=== PATIENT | male | born 1945 | race African-American/Black ===

== ENCOUNTER 2019-02-11 23:41 | Emergency (ER) | payer MEDICARE ==
[~2019-02-11] VITALS: Ht 182.9 cm; Wt 79.0 kg
[~2019-02-11 23:41] MED LIST: ALLO100T PO; AMLO10TA4 PO; ASPI-1393 PO; ASPI-864 PO; CEFT400V IV; HYDR-3927 PO; HYDR-4134 PO; HYDR500C18 PO; LISI10TA5 PO; METO25TA6 PO; OMEP20CA5 PO; PANTOPRAZOLE PO; TERA5CAP PO
[2019-02-12 03:56] LABS: BASOPHILS % 0.6 % (0.0-2.0); EOSINOPHILS % 2.7 % (0.0-5.0); HEMATOCRIT. 35.8 % (42.0-52.0); HEMOGLOBIN. 11.4 g/dL (14.0-18.0); MEAN CORPUSCULAR HEMOGLOBIN 31.3 pg (28.0-32.0); MEAN CORPUSCULAR VOLUME 97.9 fL (80.0-94.0); MEAN PLATELET VOLUME 7.3 fl (7.4-10.4); MONOCYTES % 2.4 % (2.0-8.0); NEUTROPHILS % 86.3 % (40.0-76.0); PLATELET 235 x1000/uL (130-400); RED BLOOD CELL COUNT 3.66 mill/uL (4.7-6.1); RED CELL DISTRIBUTION WIDTH 16.7 % (11.6-14.6)
[2019-02-12 04:02] LABS: CHLORIDE 116 mEq/L (98-107)
[2019-02-12 05:45] VITALS: BP 126/88
== END 2019-02-12 05:48 | disposition home or self-care (01) ==
LOC: ER 23:41 → CANBEDREQ 02-12 07:40
DX: N28.9 Disorder of kidney and ureter, unspecified (principal); I10 Essential (primary) hypertension; N40.0 Benign prostatic hyperplasia without lower urinary tract symptoms; R78.89 Finding of other specified substances, not normally found in blood; Z98.890 Other specified postprocedural states; Z88.1 Allergy status to other antibiotic agents; Z79.899 Other long term (current) drug therapy
CPT/HCPCS: 36415; 99283

== ENCOUNTER 2022-03-14 18:18 | Inpatient (IN) | payer MEDICARE ==
[~2022-03-14] VITALS: Ht 172.7 cm; Wt 58.5 kg
[~2022-03-14 18:18] MED LIST changes: -AMLO10TA4 PO; -ASPI-1393 PO; -ASPI-864 PO; -HYDR-4134 PO; -LISI10TA5 PO; -METO25TA6 PO; +OMEP20CA14 PO; -OMEP20CA5 PO
[2022-03-14] MEDS ORDERED: VANCOMYCIN 1G PREMIX 200 ML IV ONE (18:45)
[2022-03-14] MEDS ORDERED: PIPERACILLIN/TAZ 3.375G PREMIX 50 ML IV ONE (18:45)
[2022-03-14] MEDS ORDERED: VANCOMYCIN 1G PREMIX 200 ML IV NR (18:45)
[2022-03-14] MEDS ORDERED: SODIUM CHLORIDE 0.9% 500 ML IV ONE (18:45)
[2022-03-14 19:02] LABS: BG BASE EXCESS -22.2 mmol/L (-2.0-2.0); BG CARBOXYHEMOGLOBIN 2.2 % (0.5-1.5); BG DEOXYHEMOGLOBIN 1.4 % (0.0-5.0); BG FRACTION INSPIRED OXYGEN 21; BG HCO3 ACT 5.8 mmol/L (22.0-26.0); BG METHEMOGLOBIN 0.3 % (0.0-1.5); BG OXYGEN SATURATION 98.6 % (92.0-98.5); BG OXYHEMOGLOBIN 96.1 % (94.0-97.0); BG PCO2 19.6 mmHg (35.0-45.0); BG PH 7.089 (7.350-7.450); BG PO2 130.8 mmHg (75.0-100.0); BG SAMPLE SITE RIGHT BRACHIAL; BG TOTAL HEMOGLOBIN 8.5 g/dL (12.0-18.0); BG VENT MODE ROOM AIR
[2022-03-14] MEDS ORDERED: SODIUM BICARBONATE 150 MEQ in DEXTROSE 5% WATER 1,000 ML IV STA (19:13)
[2022-03-14] MEDS ORDERED: SODIUM BICARBONATE 8.4% 1 MEQ/ML 50ML SYR IV NR (19:15)
[2022-03-14] MEDS ORDERED: SODIUM BICARBONATE 8.4% 1 MEQ/ML 50ML SYR IV ONE (19:15)
[2022-03-14 19:57] LABS: HEMATOCRIT. 31.5 % (42.0-52.0); MEAN CORPUSCULAR HEMOGLOBIN 25.6 pg (28.0-32.0); MEAN PLATELET VOLUME 8.5 fl (7.4-10.4); PLATELET 233 x1000/uL (130-400); RED BLOOD CELL COUNT 3.49 mill/uL (4.7-6.1); RED CELL DISTRIBUTION WIDTH 20.4 % (11.6-14.6)
[2022-03-14 20:10] LABS: CHLORIDE 119 mEq/L (98-107)
[2022-03-14] MEDS ORDERED: DEXTROSE 50% WATER 50ML SYRINGE IV NR (20:15)
[2022-03-14 21:25] LABS: CLARITY URINE CLEAR (CLEAR); COLOR URINE YELLOW (YELLOW); KETONES URINE TRACE (NEGATIVE); LEUKOCYTE ESTERASE URINE NEGATIVE (NEGATIVE); NITRITE URINE NEGATIVE (NEGATIVE); OCCULT BLOOD URINE NEGATIVE (NEGATIVE); PH URINE 5.5 (4.5-8.0); PROTEIN URINE 2+ (NEGATIVE); SPECIFIC GRAVITY URINE 1.013 (1.005-1.030); UROBILINOGEN URINE 0.2 E.U./dL (0.2-1.0)
[2022-03-14] MEDS ORDERED: ALBUTEROL (0.083%) 2.5MG/3ML NEB HHN ONE (22:00)
[2022-03-14] MEDS ORDERED: CALCIUM CHLORIDE 1GM/10ML SYR IV ONE (22:00)
[2022-03-14 22:32] LABS: PLATELET ESTIMATE NORMAL
[2022-03-14] MEDS ORDERED: VANCOMYCIN 1G PREMIX 200 ML IV SCH (22:45)
[2022-03-14] MEDS ORDERED: DIPHENHYDRAMINE 50MG/ML VIAL IV PRN (22:45)
[2022-03-14] MEDS ORDERED: ACETAMINOPHEN 325MG TABLET PO PRN (22:45)
[2022-03-14] MEDS ORDERED: DEXT 5%/0.45% NACL 1000ML 1,000 ML IV SCH (23:00)
[2022-03-15] VITALS (46 sets, daily range): BP systolic 67–142; BP diastolic 28–76
[2022-03-15 01:59] LABS: HEPATITIS B SURFACE ANTIGEN NEGATIVE
[2022-03-15 04:50] LABS: HEMATOCRIT. 27.7 % (42.0-52.0); HEMOGLOBIN. 8.1 g/dL (14.0-18.0); MEAN CORPUSCULAR HEMOGLOBIN 25.8 pg (28.0-32.0); MEAN CORPUSCULAR VOLUME 88.5 fL (80.0-94.0); MEAN PLATELET VOLUME 7.9 fl (7.4-10.4); PLATELET 154 x1000/uL (130-400); RED BLOOD CELL COUNT 3.13 mill/uL (4.7-6.1); RED CELL DISTRIBUTION WIDTH 19.6 % (11.6-14.6)
[2022-03-15] MEDS ORDERED: SODIUM BICARBONATE 8.4% 1 MEQ/ML 50ML SYR IV SCH (07:24)
[2022-03-15 07:33] LABS: PLATELET ESTIMATE NORMAL
[2022-03-15] MEDS ORDERED: PIPERACILLIN/TAZOBACTAM 3.375 G in DEXTROSE 5% WATER 50 ML IV SCH (09:00)
[2022-03-15 09:23] LABS: BG BASE EXCESS -9.8 mmol/L (-2.0-2.0); BG CARBOXYHEMOGLOBIN 1.8 % (0.5-1.5); BG DEOXYHEMOGLOBIN 3.7 % (0.0-5.0); BG FRACTION INSPIRED OXYGEN 21; BG HCO3 ACT 14.7 mmol/L (22.0-26.0); BG METHEMOGLOBIN 0.9 % (0.0-1.5); BG OXYGEN SATURATION 96.2 % (92.0-98.5); BG OXYHEMOGLOBIN 93.6 % (94.0-97.0); BG PCO2 27.3 mmHg (35.0-45.0); BG PO2 88.9 mmHg (75.0-100.0); BG SAMPLE SITE RIGHT RADIAL; BG TOTAL HEMOGLOBIN 7.4 g/dL (12.0-18.0); BG VENT MODE ROOM AIR
[2022-03-15] MEDS: MORPHINE SULFATE 2 MG/ML CPJ (NOT FOR IM USE) IV PRN (10:55)
[2022-03-15] MEDS ORDERED: NALOXONE HCL 0.4MG/ML VIAL IV PRN (11:00)
[2022-03-15] MEDS ORDERED: IPRATROPIUM/ALBUTEROL 0.5-3(2.5)MG/3ML NEB HHN PRN (11:45)
[2022-03-15 13:10] LABS: TOTAL IRON BINDING CAPACITY 189 ug/dL (250-450)
[2022-03-15] MEDS: SODIUM BICARBONATE 150 MEQ in DEXTROSE 5% WATER 1,000 ML IV SCH (14:44)
[2022-03-15] MEDS: PIPERACILLIN/TAZOBACTAM 3.375 G in DEXTROSE 5% WATER 50 ML IV SCH (20:17)
[2022-03-16] VITALS (90 sets, daily range): BP systolic 79–156; BP diastolic 23–93
[2022-03-16] MEDS: PHENYLEPHRINE 100 MG in DEXT 5% WATER 240 ML IV PRN ×2 (00:32→23:48)
[2022-03-16 04:28] LABS: HEMATOCRIT. 22.7 % (42.0-52.0); HEMOGLOBIN. 7.2 g/dL (14.0-18.0); MEAN CORPUSCULAR HEMOGLOBIN 25.6 pg (28.0-32.0); MEAN CORPUSCULAR VOLUME 81.3 fL (80.0-94.0); PLATELET 137 x1000/uL (130-400); RED BLOOD CELL COUNT 2.79 mill/uL (4.7-6.1); RED CELL DISTRIBUTION WIDTH 19.3 % (11.6-14.6)
[2022-03-16 05:38] LABS: PLATELET ESTIMATE NORMAL
[2022-03-16] MEDS: SODIUM BICARBONATE 150 MEQ in DEXTROSE 5% WATER 1,000 ML IV SCH ×2 (07:49→23:47)
[2022-03-16] MEDS: PIPERACILLIN/TAZOBACTAM 3.375 G in DEXTROSE 5% WATER 50 ML IV SCH (08:54)
[2022-03-16] MEDS: METRONIDAZOLE 500MG TABLET PO SCH ×2 (13:55→21:42)
[2022-03-16] MEDS ORDERED: VANCOMYCIN 1G PREMIX 200 ML IV SCH (14:00)
[2022-03-16] MEDS: CEFEPIME 1,000 MG in DEXTROSE 5% WATER 50 ML IV SCH (15:36)
[2022-03-17] VITALS (99 sets, daily range): BP systolic 98–159; BP diastolic 40–104
[2022-03-17 05:07] LABS: HEMATOCRIT. 22.5 % (42.0-52.0); HEMOGLOBIN. 7.1 g/dL (14.0-18.0); MEAN CORPUSCULAR HEMOGLOBIN 25.4 pg (28.0-32.0); MEAN CORPUSCULAR VOLUME 80.4 fL (80.0-94.0); MEAN PLATELET VOLUME 9.1 fl (7.4-10.4); PLATELET 119 x1000/uL (130-400); RED CELL DISTRIBUTION WIDTH 19.4 % (11.6-14.6)
[2022-03-17] MEDS: METRONIDAZOLE 500MG TABLET PO SCH (06:07)
[2022-03-17 12:22] LABS: PLATELET ESTIMATE DECREASED
[2022-03-17] MEDS: CEFEPIME 1,000 MG in DEXTROSE 5% WATER 50 ML IV SCH (14:19)
[2022-03-17] MEDS: METRONIDAZOLE 250MG TABLET PO SCH ×2 (14:19→21:04)
[2022-03-17] MEDS: METOPROLOL TARTRATE 25MG TABLET NG SCH (21:03)
[2022-03-18] VITALS (100 sets, daily range): BP systolic 106–177; BP diastolic 40–118
[2022-03-18] MEDS: MORPHINE SULFATE 2 MG/ML CPJ (NOT FOR IM USE) IV PRN ×2 (04:52→17:59)
[2022-03-18 05:52] LABS: HEMATOCRIT. 21.9 % (42.0-52.0); MEAN CORPUSCULAR HEMOGLOBIN 25.2 pg (28.0-32.0); MEAN CORPUSCULAR VOLUME 81.7 fL (80.0-94.0); RED BLOOD CELL COUNT 2.68 mill/uL (4.7-6.1); RED CELL DISTRIBUTION WIDTH 18.2 % (11.6-14.6)
[2022-03-18] MEDS: METRONIDAZOLE 250MG TABLET PO SCH ×3 (06:20→21:07)
[2022-03-18 06:47] LABS: HEMOGLOBIN. 6.8 g/dL (14.0-18.0)
[2022-03-18] MEDS: ACETAMINOPHEN 325MG TABLET PO PRN (08:10)
[2022-03-18] MEDS: METOPROLOL TARTRATE 25MG TABLET NG SCH ×2 (08:10→21:07)
[2022-03-18 09:28] LABS: PLATELET ESTIMATE DECREASED
[2022-03-18 09:30] LABS: MEAN PLATELET VOLUME 10.2 fl (7.4-10.4)
[2022-03-18 09:31] LABS: PLATELET 78 x1000/uL (130-400)
[2022-03-18] MEDS: CEFEPIME 1,000 MG in DEXTROSE 5% WATER 50 ML IV SCH (14:19)
[2022-03-19] VITALS (42 sets, daily range): BP systolic 89–149; BP diastolic 53–79
[2022-03-19] MEDS: METRONIDAZOLE 250MG TABLET PO SCH ×3 (05:46→21:38)
[2022-03-19] MEDS: MORPHINE SULFATE 2 MG/ML CPJ (NOT FOR IM USE) IV PRN (05:46)
[2022-03-19 05:47] LABS: HEMATOCRIT. 25.8 % (42.0-52.0); HEMOGLOBIN. 8.1 g/dL (14.0-18.0); MEAN CORPUSCULAR HEMOGLOBIN 25.9 pg (28.0-32.0); RED BLOOD CELL COUNT 3.15 mill/uL (4.7-6.1); RED CELL DISTRIBUTION WIDTH 17.5 % (11.6-14.6)
[2022-03-19] MEDS ORDERED: ALTEPLASE 2MG/VIAL ITC NR (08:00)
[2022-03-19 08:16] LABS: PLATELET ESTIMATE DECREASED
[2022-03-19 08:17] LABS: PLATELET 67 x1000/uL (130-400)
[2022-03-19] MEDS: METOPROLOL TARTRATE 25MG TABLET NG SCH ×2 (09:32→21:00)
[2022-03-19] MEDS: ACETAMINOPHEN 325MG TABLET PO PRN (09:33)
[2022-03-19] MEDS: CEFEPIME 1,000 MG in DEXTROSE 5% WATER 50 ML IV SCH (14:36)
[2022-03-19] MEDS ORDERED: VANCOMYCIN 750 MG in DEXT 5% WATER 250 ML IV NR (18:00)
[2022-03-20] VITALS: BP 119/59
[2022-03-20 04:00] VITALS: BP 114/57
[2022-03-20] MEDS: ONDANSETRON HCL 4MG/2ML INJ IV PRN ×2 (06:23→21:54)
[2022-03-20] MEDS: METRONIDAZOLE 250MG TABLET PO SCH ×3 (06:23→21:54)
[2022-03-20 07:35] LABS: HEMATOCRIT. 25.5 % (42.0-52.0); HEMOGLOBIN. 7.9 g/dL (14.0-18.0); MEAN CORPUSCULAR HEMOGLOBIN 25.9 pg (28.0-32.0); MEAN CORPUSCULAR VOLUME 83.2 fL (80.0-94.0); RED BLOOD CELL COUNT 3.06 mill/uL (4.7-6.1); RED CELL DISTRIBUTION WIDTH 17.5 % (11.6-14.6)
[2022-03-20 08:00] VITALS: BP 141/65
[2022-03-20] MEDS ORDERED: ALTEPLASE 2MG/VIAL ITC NR (08:00)
[2022-03-20] MEDS: ASCORBIC ACID 500 MG TABLET PO SCH (09:55)
[2022-03-20] MEDS: ZINC SULFATE 220 MG ( 50 ) CAPSULE PO SCH (09:55)
[2022-03-20] MEDS: METOPROLOL TARTRATE 25MG TABLET NG SCH ×2 (09:55→21:00)
[2022-03-20 12:00] VITALS: BP 89/45
[2022-03-20 13:34] LABS: NUCLEATED RED BLOOD CELLS 1 /100 WBC
[2022-03-20 13:35] LABS: PLATELET ESTIMATE DECREASED
[2022-03-20 13:37] LABS: MEAN PLATELET VOLUME 9.3 fl (7.4-10.4); PLATELET 59 x1000/uL (130-400)
[2022-03-20] MEDS ORDERED: [UNRECOGNIZED DRUG - REMARK] XX SCH (14:30)
[2022-03-20] MEDS: CEFEPIME 1,000 MG in DEXTROSE 5% WATER 50 ML IV SCH (15:31)
[2022-03-20 16:00] VITALS: BP 100/50
[2022-03-20 20:00] VITALS: BP 95/51
[2022-03-21] VITALS (8 sets, daily range): BP systolic 90–128; BP diastolic 43–68
[2022-03-21] MEDS: ACETAMINOPHEN 325MG TABLET PO PRN (01:06)
[2022-03-21] MEDS: METRONIDAZOLE 250MG TABLET PO SCH ×3 (07:06→21:32)
[2022-03-21 07:08] LABS: HEMATOCRIT. 21.6 % (42.0-52.0); MEAN CORPUSCULAR HEMOGLOBIN 26.3 pg (28.0-32.0); MEAN CORPUSCULAR VOLUME 82.8 fL (80.0-94.0); RED BLOOD CELL COUNT 2.61 mill/uL (4.7-6.1); RED CELL DISTRIBUTION WIDTH 17.2 % (11.6-14.6)
[2022-03-21 08:55] LABS: HEMOGLOBIN. 6.9 g/dL (14.0-18.0)
[2022-03-21 08:56] LABS: PLATELET 65 x1000/uL (130-400)
[2022-03-21] MEDS: ASCORBIC ACID 500 MG TABLET PO SCH (09:37)
[2022-03-21] MEDS: ZINC SULFATE 220 MG ( 50 ) CAPSULE PO SCH (09:37)
[2022-03-21] MEDS: METOPROLOL TARTRATE 25MG TABLET NG SCH ×2 (09:38→21:32)
[2022-03-21 13:06] LABS: PLATELET ESTIMATE DECREASED
[2022-03-21] MEDS: CEFEPIME 1,000 MG in DEXTROSE 5% WATER 50 ML IV SCH (15:32)
[2022-03-22] VITALS (8 sets, daily range): BP systolic 101–115; BP diastolic 45–66
[2022-03-22] MEDS: METRONIDAZOLE 250MG TABLET PO SCH ×3 (05:53→21:42)
[2022-03-22 08:04] LABS: HEMATOCRIT. 28.2 % (42.0-52.0); HEMOGLOBIN. 8.6 g/dL (14.0-18.0); MEAN CORPUSCULAR HEMOGLOBIN 26.5 pg (28.0-32.0); MEAN CORPUSCULAR VOLUME 86.6 fL (80.0-94.0); MEAN PLATELET VOLUME 11.5 fl (7.4-10.4); PLATELET 91 x1000/uL (130-400); RED BLOOD CELL COUNT 3.26 mill/uL (4.7-6.1); RED CELL DISTRIBUTION WIDTH 17.4 % (11.6-14.6)
[2022-03-22] MEDS: ZINC SULFATE 220 MG ( 50 ) CAPSULE PO SCH (09:19)
[2022-03-22] MEDS: ASCORBIC ACID 500 MG TABLET PO SCH (09:20)
[2022-03-22] MEDS: METOPROLOL TARTRATE 25MG TABLET NG SCH ×2 (09:20→21:00)
[2022-03-22 10:02] LABS: PLATELET ESTIMATE DECREASED
[2022-03-22] MEDS: ACETAMINOPHEN 325MG TABLET PO PRN ×2 (10:29→22:30)
[2022-03-22] MEDS: CEFEPIME 1,000 MG in DEXTROSE 5% WATER 50 ML IV SCH (15:00)
[2022-03-23] VITALS (7 sets, daily range): BP systolic 100–131; BP diastolic 30–61
[2022-03-23] MEDS: METRONIDAZOLE 250MG TABLET PO SCH ×3 (06:56→22:14)
[2022-03-23 08:25] LABS: HEMATOCRIT. 25.6 % (42.0-52.0); HEMOGLOBIN. 7.8 g/dL (14.0-18.0); MEAN CORPUSCULAR HEMOGLOBIN 26.5 pg (28.0-32.0); MEAN CORPUSCULAR VOLUME 86.5 fL (80.0-94.0); MEAN PLATELET VOLUME 9.7 fl (7.4-10.4); PLATELET 71 x1000/uL (130-400); RED BLOOD CELL COUNT 2.96 mill/uL (4.7-6.1)
[2022-03-23] MEDS: METOPROLOL TARTRATE 25MG TABLET NG SCH ×2 (10:21→20:31)
[2022-03-23] MEDS: ASCORBIC ACID 500 MG TABLET PO SCH (10:21)
[2022-03-23] MEDS: ZINC SULFATE 220 MG ( 50 ) CAPSULE PO SCH (10:21)
[2022-03-23] MEDS: CEFEPIME 1,000 MG in DEXTROSE 5% WATER 50 ML IV SCH (15:32)
[2022-03-23] MEDS: ACETAMINOPHEN 325MG TABLET PO PRN (18:19)
[2022-03-23 22:50] LABS: PLATELET ESTIMATE DECREASED
== END 2022-03-23 23:00 | disposition short-term general hospital (02) | DRG 871 ==
LOC: ER 18:18 → MICUSO 21:59 → EDBEDREQ 22:28 → EDBEDREQSVC 22:29 → EDBEDREQTM 22:29 → ENRESERV 22:39 → CANRESERV 22:39 → EDBEDREQSVC 23:09 → CANRESERV 23:20 → ENRESERV 23:20 → EDBEDREQSVC 03-15 00:51 → ENRESERV 03-15 01:09 → MICUSO 03-15 06:18 → 7WST 03-15 07:20 → MICUSO 03-15 08:10 → 6WST 03-19 17:09
PROVIDERS: ADMIT Internal Medicine; ATTEND Internal Medicine
PROC: 5A1D70Z Performance of Urinary Filtration, Intermittent, Less than 6 Hours Per Day (ICD-10-PCS; 2022-03-15)
PROC: 5A1D70Z Performance of Urinary Filtration, Intermittent, Less than 6 Hours Per Day (ICD-10-PCS; 2022-03-16)
PROC: 30233N1 Transfusion of Nonautologous Red Blood Cells into Peripheral Vein, Percutaneous Approach (ICD-10-PCS; principal; 2022-03-18)
PROC: 5A1D70Z Performance of Urinary Filtration, Intermittent, Less than 6 Hours Per Day (ICD-10-PCS; 2022-03-18)
DX: A41.50 Gram-negative sepsis, unspecified (principal); E43 Unspecified severe protein-calorie malnutrition; N18.6 End stage renal disease; G93.41 Metabolic encephalopathy; R65.21 Severe sepsis with septic shock; E87.2 Acidosis; I12.0 Hypertensive chronic kidney disease with stage 5 chronic kidney disease or end stage renal disease; E87.0 Hyperosmolality and hypernatremia; Z68.1 Body mass index [BMI] 19.9 or less, adult; L97.929 Non-pressure chronic ulcer of unspecified part of left lower leg with unspecified severity; L97.919 Non-pressure chronic ulcer of unspecified part of right lower leg with unspecified severity; D61.818 Other pancytopenia; R64 Cachexia; E87.5 Hyperkalemia; M10.9 Gout, unspecified; D64.9 Anemia, unspecified; S30.0XXA Contusion of lower back and pelvis, initial encounter; I95.9 Hypotension, unspecified; J44.9 Chronic obstructive pulmonary disease, unspecified; N40.0 Benign prostatic hyperplasia without lower urinary tract symptoms; J30.9 Allergic rhinitis, unspecified; E11.22 Type 2 diabetes mellitus with diabetic chronic kidney disease; Z88.8 Allergy status to other drugs, medicaments and biological substances; Z91.15 Patient's noncompliance with renal dialysis; Z79.899 Other long term (current) drug therapy; Z99.2 Dependence on renal dialysis; Z86.73 Personal history of transient ischemic attack (TIA), and cerebral infarction without residual deficits; Z91.19 Patient's noncompliance with other medical treatment and regimen
CPT/HCPCS: 36415; 36600; 71045; 80048; 80053; 80202; 81003; 82270; 82375; 82805; 82962; 83540; 83550; 83605; 84100; 84132; 84145; 84484; 85025; 86705; 86706; 86709; 86803; 86850; 86900; 86920; 87077; 87186; 87340; 92610; 93005; 93923; 94644; 97022; 97161; 97162; 99291; J0692; J2270; J2370; J2405; J2543; J2997; J3370; J3490; J7040; J7060; J7070; P9016

== ENCOUNTER 2022-07-22 20:14 | Inpatient (IN) | payer MEDICARE ==
[~2022-07-22] VITALS: Ht 182.9 cm; Wt 67.3 kg
[2022-07-23] VITALS (16 sets, daily range): BP systolic 87–108; BP diastolic 42–62
[2022-07-23 00:28] LABS: BASOPHILS % 0.5 % (0.0-2.0); EOSINOPHILS % 3.5 % (0.0-5.0); HEMOGLOBIN. 11.3 g/dL (14.0-18.0); MEAN CORPUSCULAR HEMOGLOBIN 22.8 pg (28.0-32.0); MEAN CORPUSCULAR VOLUME 80.8 fL (80.0-94.0); MEAN PLATELET VOLUME 8.4 fl (7.4-10.4); MONOCYTES % 2.4 % (2.0-8.0); NEUTROPHILS % 82.6 % (40.0-76.0); PLATELET 69 x1000/uL (130-400); RED BLOOD CELL COUNT 4.95 mill/uL (4.7-6.1); RED CELL DISTRIBUTION WIDTH 21.4 % (11.6-14.6)
[2022-07-23 00:40] LABS: CHLORIDE 104 mEq/L (98-107)
[2022-07-23] MEDS ORDERED: CLONIDINE 0.1MG TABLET PO PRN (03:15)
[2022-07-23] MEDS ORDERED: MORPHINE SULFATE 2 MG/ML CPJ (NOT FOR IM USE) IV PRN (03:15)
[2022-07-23] MEDS ORDERED: ONDANSETRON HCL 4MG/2ML INJ IV PRN (03:15)
[2022-07-23] MEDS: HYDROXYUREA 500MG CAPSULE PO SCH (09:00)
[2022-07-23] MEDS: ALLOPURINOL 100 MG TABLET PO SCH (09:00)
[2022-07-23] MEDS: ACETAMINOPHEN 325MG TABLET PO PRN ×2 (14:14→20:53)
[2022-07-23] MEDS ORDERED: CEFTRIAXONE 1 G PREMIX 50 ML IV SCH (15:15)
[2022-07-23] MEDS ORDERED: IPRATROPIUM/ALBUTEROL 0.5-3(2.5)MG/3ML NEB HHN PRN (15:15)
[2022-07-23 17:09] LABS: HEPATITIS B SURFACE ANTIGEN NEGATIVE
[2022-07-23] MEDS: CEFTRIAXONE 1,000 MG in DEXTROSE 5% WATER 50 ML IV SCH (20:39)
[2022-07-23] MEDS: AZITHROMYCIN 500 MG in DEXT 5% WATER 250 ML IV SCH (22:49)
[2022-07-23] MEDS ORDERED: NALOXONE HCL 0.4MG/ML VIAL IV PRN (23:30)
[2022-07-24] VITALS (20 sets, daily range): BP systolic 91–132; BP diastolic 52–75
[2022-07-24] MEDS: ALLOPURINOL 100 MG TABLET PO SCH (09:57)
[2022-07-24] MEDS: MIDODRINE HCL 5MG TABLET PO SCH ×2 (09:57→17:19)
[2022-07-24 10:30] LABS: BASOPHILS % 0.4 % (0.0-2.0); EOSINOPHILS % 3.6 % (0.0-5.0); HEMATOCRIT. 35.7 % (42.0-52.0); HEMOGLOBIN. 10.1 g/dL (14.0-18.0); LYMPHOCYTES % 8.7 % (20.0-50.0); MEAN CORPUSCULAR HEMOGLOBIN 22.5 pg (28.0-32.0); MEAN CORPUSCULAR VOLUME 79.7 fL (80.0-94.0); MEAN PLATELET VOLUME 8.6 fl (7.4-10.4); NEUTROPHILS % 84.3 % (40.0-76.0); PLATELET 117 x1000/uL (130-400); RED BLOOD CELL COUNT 4.48 mill/uL (4.7-6.1); RED CELL DISTRIBUTION WIDTH 21.2 % (11.6-14.6)
[2022-07-24 10:45] LABS: INR 1.3; PROTHROMBIN TIME 13.9 sec (9.6-11.0)
[2022-07-24 12:14] LABS: CHLORIDE 109 mEq/L (98-107)
[2022-07-24] MEDS: HYDROXYUREA 500MG CAPSULE PO SCH (12:21)
[2022-07-24] MEDS: AZITHROMYCIN 500 MG in DEXT 5% WATER 250 ML IV SCH (17:18)
[2022-07-24] MEDS: CEFTRIAXONE 1,000 MG in DEXTROSE 5% WATER 50 ML IV SCH ×2 (17:18→17:20)
[2022-07-25] VITALS (14 sets, daily range): BP systolic 96–119; BP diastolic 43–75
[2022-07-25 06:21] LABS: BASOPHILS % 0.5 % (0.0-2.0); EOSINOPHILS % 4.5 % (0.0-5.0); HEMATOCRIT. 34.8 % (42.0-52.0); MEAN CORPUSCULAR HEMOGLOBIN 22.9 pg (28.0-32.0); MEAN CORPUSCULAR VOLUME 79.4 fL (80.0-94.0); MEAN PLATELET VOLUME 8.3 fl (7.4-10.4); MONOCYTES % 3.5 % (2.0-8.0); NEUTROPHILS % 81.5 % (40.0-76.0); PLATELET 111 x1000/uL (130-400); RED BLOOD CELL COUNT 4.38 mill/uL (4.7-6.1)
[2022-07-25] MEDS ORDERED: SODIUM BICARBONATE 4% (2.4MEQ) 5ML VIAL IV ONE (09:10)
[2022-07-25] MEDS: MIDODRINE HCL 5MG TABLET PO SCH ×3 (09:13→17:45)
[2022-07-25] MEDS: ALLOPURINOL 100 MG TABLET PO SCH (09:13)
[2022-07-25] MEDS: ENOXAPARIN 30MG/0.3ML SYR SUBCUT SCH (13:02)
[2022-07-25] MEDS: ACETAMINOPHEN 325MG TABLET PO PRN (17:46)
[2022-07-25] MEDS: AZITHROMYCIN 500 MG in DEXT 5% WATER 250 ML IV SCH (17:46)
[2022-07-25] MEDS: HYDROXYUREA 500MG CAPSULE PO SCH (17:46)
[2022-07-25] MEDS: CEFTRIAXONE 1,000 MG in DEXTROSE 5% WATER 50 ML IV SCH (17:47)
[2022-07-26] VITALS (13 sets, daily range): BP systolic 93–121; BP diastolic 43–64
[2022-07-26 05:52] LABS: BASOPHILS % 0.6 % (0.0-2.0); EOSINOPHILS % 4.5 % (0.0-5.0); HEMATOCRIT. 35.4 % (42.0-52.0); HEMOGLOBIN. 9.8 g/dL (14.0-18.0); LYMPHOCYTES % 9.2 % (20.0-50.0); MEAN CORPUSCULAR HEMOGLOBIN 22.3 pg (28.0-32.0); MEAN CORPUSCULAR VOLUME 80.4 fL (80.0-94.0); MEAN PLATELET VOLUME 8.6 fl (7.4-10.4); MONOCYTES % 3.2 % (2.0-8.0); NEUTROPHILS % 82.5 % (40.0-76.0); PLATELET 116 x1000/uL (130-400); RED CELL DISTRIBUTION WIDTH 21.1 % (11.6-14.6)
[2022-07-26] MEDS: ACETAMINOPHEN 325MG TABLET PO PRN (09:15)
[2022-07-26] MEDS: HYDROXYUREA 500MG CAPSULE PO SCH (09:16)
[2022-07-26] MEDS: ALLOPURINOL 100 MG TABLET PO SCH (09:16)
[2022-07-26] MEDS: MIDODRINE HCL 5MG TABLET PO SCH ×3 (09:18→18:28)
[2022-07-26] MEDS: ENOXAPARIN 30MG/0.3ML SYR SUBCUT SCH (10:30)
[2022-07-26] MEDS: AZITHROMYCIN 500 MG in DEXT 5% WATER 250 ML IV SCH (18:29)
== END 2022-07-26 21:51 | DRG 205 ==
LOC: ER 20:14 → 8WST 07-23 03:42 → ENRESERV 07-23 04:41 → 5EST 07-23 23:19
PROVIDERS: ADMIT Internal Medicine Nephrology; ATTEND Internal Medicine Nephrology
PROC: 5A1D70Z Performance of Urinary Filtration, Intermittent, Less than 6 Hours Per Day (ICD-10-PCS; principal; 2022-07-24)
PROC: 5A1D70Z Performance of Urinary Filtration, Intermittent, Less than 6 Hours Per Day (ICD-10-PCS; 2022-07-25)
PROC: 0W9B3ZZ Drainage of Left Pleural Cavity, Percutaneous Approach (ICD-10-PCS; 2022-07-25)
DX: J98.19 Other pulmonary collapse (principal); E43 Unspecified severe protein-calorie malnutrition; J96.01 Acute respiratory failure with hypoxia; N18.6 End stage renal disease; J18.9 Pneumonia, unspecified organism; I12.0 Hypertensive chronic kidney disease with stage 5 chronic kidney disease or end stage renal disease; J94.2 Hemothorax; J91.8 Pleural effusion in other conditions classified elsewhere; G62.81 Critical illness polyneuropathy; G82.20 Paraplegia, unspecified; Z20.822 Contact with and (suspected) exposure to COVID-19; D63.1 Anemia in chronic kidney disease; E87.5 Hyperkalemia; E78.5 Hyperlipidemia, unspecified; I73.9 Peripheral vascular disease, unspecified; M10.9 Gout, unspecified; N40.0 Benign prostatic hyperplasia without lower urinary tract symptoms; D69.6 Thrombocytopenia, unspecified; I95.3 Hypotension of hemodialysis; J98.11 Atelectasis; Z88.1 Allergy status to other antibiotic agents; Z68.20 Body mass index [BMI] 20.0-20.9, adult; Z99.2 Dependence on renal dialysis; Z91.15 Patient's noncompliance with renal dialysis; Z79.899 Other long term (current) drug therapy; Z82.49 Family history of ischemic heart disease and other diseases of the circulatory system; Z86.73 Personal history of transient ischemic attack (TIA), and cerebral infarction without residual deficits
CPT/HCPCS: 32555; 36415; 71045; 71250; 76604; 80048; 80053; 82040; 83615; 84484; 85025; 86705; 86709; 86803; 87340; 87426; 88108; 90935; 93005; 93970; 97162; 99291; A6261; J0456; J0696; J1650; J3490; J7060